=== PATIENT | female | born 1985 | race Caucasian/White ===

== ENCOUNTER 2016-05-25 20:36 | Emergency (ER) ==
--- NOTE | 2016-05-25 21:36 | PROVIDER DOCUMENTATION ---
HPI-Female /OB/Breast - General Source: reports: patient <Sol Hannah - Last Filed: 05/26/16 01:58> <Gregor Muir - Last Filed: 05/26/16 03:34> - General Chief Complaint: Abdominal Pain Stated Complaint: PREG?, CRAMPING NO SPOTTING Time Seen by Provider: 05/25/16 21:30 Allergies/Adverse Reactions: Patient Allergies Allergy/AdvReac Type Severity Reaction Status Date / Time diphenhydramine HCl * Allergy SWELLING Verified 05/25/16 20:52 [From Benadryl] Home Medications: Home Medication List Medication Instructions Recorded Confirmed Last Taken Type Nitrofurantoin [place]/Macrocryst 100 mg PO BID #20 capsule 05/26/16 Unknown Rx [Macrobid] Phenazopyridine HCl [Pyridium] 100 mg PO TID #6 tablet 05/26/16 Unknown Rx Pnv No.118/Iron Fumarate/FA 1 each PO DAILY #90 tab.chew 05/26/16 Unknown Rx [ 19 Chewable Tablet] - History of Present Illness-Female /OB Nature of Presenting Problem: 31 y/o WF c/o abd. cramping x 2-3 hours. Pt states that she just found out she was one week ago by home test. States pain in suprapubic region, not R or L. Denies any spotting. States vomiting x 2 today with nausea prior to cramping. States diarrhea x 1 yesterday. . No care. States also has pain in low back that started at same time. (Sol Hannah) Review of Systems - Adult - REVIEW OF SYSTEMS - ADULT Constitutional: reports: no symptoms reported. denies: chills, fever Eyes: reports: no symptoms reported. denies: blurred vision, double vision Ears, Nose, Mouth & Throat: reports: no symptoms reported. denies: ear pain, nose pain Cardiovascular: reports: no symptoms reported. denies: chest pain, palpitations Respiratory: reports: no symptoms reported. denies: cough, shortness of breath Gastrointestinal: reports: see HPI, abdominal pain (09/23), diarrhea, nausea, vomiting. denies: constipation Genitourinary: reports: no symptoms reported. denies: dysuria, frequency Musculoskeletal: reports: no symptoms reported. denies: joint pain, joint swelling Integumentary: reports: no symptoms reported. denies: nail changes, rash Neurological: reports: no symptoms reported. denies: numbness, paresthesia Psychiatric: reports: no symptoms reported Endocrine: reports: no symptoms reported. denies: cold intolerance, heat intolerance Hematologic/Lymphatic: reports: no symptoms reported. denies: easy bruising, prolonged bleeding Allergic/Immunologic: reports: no symptoms reported All Other Systems: Reviewed and Negative <Hoang Hannahine AmarilisJesica - Last Filed: 05/26/16 01:58> Past History - Adult - PAST MEDICAL HISTORY-ADULT Review of Records: reports: Nursing Assessment Review, Medications Reviewed LMP: 04/17/16 - PRIOR SURGERIES/PROCEDURES Surgical/Procedure History: reports: appendectomy, , orthopedic ( extremity) (R knee), other (D&C, L eye tropia corrective surgery) - SOCIAL HISTORY Smoking: cigarettes, less than 1 pack/day Provider spent 3-5 mins advising pt. on dangers of tobacco.: Discussed manners to quit use, and f/u contacts for add'l counseling. Substance Use: amphetamines (reports stopped using 3 days ago) Alcohol Use Frequency: occasionally Number of drinks per typical drinking period:: 2 drinks <Hoang Hannahine AmarilisJesica - Last Filed: 05/26/16 01:58> Physical Exam-General - PHYSICAL EXAM-ADULT Initial Vital Signs Reviewed: Yes - CONSTITUTIONAL General Appearance: alert, mild distress - EYES Eyes: pink conjunctivae - HEAD, EARS, NOSE, MOUTH & THROAT HENMT: normocephalic/atraumatic, moist mucous membranes - NECK Neck: normal inspection - RESPIRATORY Respiratory: lungs clear, normal breath sounds. negative: crackles, rales, rhonchi, stridor, wheezing - CARDIOVASCULAR Cardiovascular: regular rate, rhythm. negative: bradycardia, tachycardia - GASTROINTESTINAL (ABDOMEN) Abdominal Exam: normal bowel sounds, soft, tenderness (suprapubic). negative: distended, guarding, rigid, McBurney's point tenderness, Hatfield's sign - MUSCULOSKELETAL Back Exam: no CVA tenderness, other (TTP bilat low back) Extremity: normal gait - SKIN Integumentary: normal color, normal turgor, warm/dry - NEUROLOGIC Neurologic: negative: aphasia - PSYCHIATRIC Psych/Mental Status: normal mood/affect, normal thought content, normal thought process, oriented x 3 <Sol Hannah - Last Filed: 05/26/16 01:58> Progress - CHANGE OF SHIFT REPORT (ED Provider) Report Given and Care Transferred to:: Dr. Muir Time of Transfer: 02:00 Items Pending: Ultrasound Results Tentative Impression of Patient: UTI <Sol Hannah - Last Filed: 05/26/16 01:58> <Gregor Muir - Last Filed: 05/26/16 03:34> - PLAN OF CARE/RESULTS Progress/Plan/Lab Results: Discussed lab results with Dr. Muir and further POC; he states pt needs US to confirm not ectopic. (Sol Hannah) Departure - Departure Certified Medical Emergency: Emergent <Sol Hannah - Last Filed: 05/26/16 01:58> - Departure Time of Disposition Order: 03:34 Certified Medical Emergency: Emergent <Gregor Muir - Last Filed: 05/26/16 03:34> - Departure DIAGNOSIS: Abdominal cramping UTI (urinary tract infection) Qualifiers: Urinary tract infection type: acute cystitis Hematuria presence: with hematuria Qualified Code(s): N30.01 - Acute cystitis with hematuria Normal IUP (intrauterine ) on ultrasound Qualifiers: Trimester: first trimester Qualified Code(s): Z34.91 - Encounter for supervision of normal , unspecified, first trimester Disposition: HOME 01 Condition: Stable Additional Instructions: Take medications as directed. Follow up with OB for further management. Drink plenty of fluids. ED Follow Up Instructions: You have been treated by a care provider in the Emergency Department. These instructions are being provided to you so you can have an understanding of how to care for yourself upon discharge. Upon discharge from the Emergency Department, you are responsible for making arrangements for follow-up care by a physician of your choice. Take all prescribed medications as directed. Return to the Emergency Department immediately for any new or worsening symptoms. You may call the Physician Referral phone number at [phone] to obtain a list of Physicians who are taking new patients. Prescriptions: Nitrofurantoin [place]/Macrocryst [Macrobid] 100 mg PO BID #20 capsule Pnv No.118/Iron Fumarate/FA [ 19 Chewable Tablet] 1 each PO DAILY #90 tab.chew Phenazopyridine HCl [Pyridium] 100 mg PO TID #6 tablet Referrals: None,PCP [Primary Care Provider] - Jeromy Lezama MD [STAFF PHYSICIAN] - Attestation - Physician/ [id number] Attestation Patient care was provided by Advanced Practice Provider:: Yes Advanced Practice Provider:: Sol Hannah Advanced Practice Provider documentation review:: The Mid-level provider documentation, treatment plan and medical decision making was reviewed by the physician who agrees with all treatment and medical decision making by the MLP. <Sol Hannah - Last Filed: 05/26/16 01:58> Physician Attestation
[2016-05-25 22:37] LABS: MANUAL DIFF NEEDED? NO
[2016-05-25 22:42] LABS: BASO% 0.4 % (0.0-0.8); EOS# 0.15 X1000 (0.0-0.7); EOS% 1.8 % (0.0-10.0); HEMATOCRIT 38.2 % (37.0-47.0); HEMOGLOBIN 13.9 g/dL (12.0-16.0); LYMPH# 2.06 X1000 (1.2-3.4); LYMPH% 24.4 % (20.5-51.1); MCH 32.9 PG (27-31); MCHC 36.4 g/dL (33-37); MCV 90.5 FL (81-99); MONO# 0.68 X1000 (0.11-0.59); MONO% 8.1 % (1.7-9.3); MPV 9.5 FL (7.4-10.4); NEUT% 65.3 % (42.2-75.2); PLT 462 X1000 (130-400); RBC 4.22 XMIL (4.2-5.4)
[2016-05-25 23:06] LABS: AGAP 16; ALBUMIN 4.4 g/dL (3.5-5.0); ALKALINE PHOSPHATASE 79 U/L (32-104); AMYLASE 34 U/L (20-200); BUN 5 mg/dL (8-22); CALCIUM 9.8 mg/dL (8.8-10.2); CHLORIDE 98 mmol/L (98-107); COSMO 274; GOT 44 U/L (10-30); GPT 72 U/L (10-36); LIPASE 13 U/L (13-60); POTASSIUM 3.9 mmol/L (3.5-5.1); SODIUM 139 mmol/L (136-145); TCO2 25 mmol/L (25-35); TOTAL BILIRUBIN 0.48 mg/dL (0.20-1.00); TOTAL PROTEIN 7.3 g/dL (6.3-8.3)
[2016-05-25 23:28] LABS: URINE SOURCE CLEAN CATCH
[2016-05-25 23:31] LABS: URINE MICRO REVIEW NEEDED? YES
[2016-05-25 23:32] LABS: BILIRUBIN URINE SMALL (NEGATIVE); BLOOD URINE SMALL (NEGATIVE); COLOR YELLOW; GLUCOSE URINE NEGATIVE (NEGATIVE); LEUKOCYTES URINE LARGE (NEGATIVE); NITRITE URINE NEGATIVE (NEGATIVE); PROTEIN URINE 50 mg/dL (NEGATIVE); SP GRAVITY URINE 1.026; TURBIDITY URINE HAZY (CLEAR); UROBILINOGEN URINE 3 mg/dL (NORMAL)
[2016-05-25 23:34] LABS: UR EPITHELIAL CELLS <10 /HPF (<10); URINE RBC <10 /HPF (<10); URINE WBC TNTC /HPF (<10)
[2016-05-25 23:38] LABS: URINE CULTURE NEEDED? YES
[2016-05-25 23:41] LABS: URINE CASTS NONE SEEN; URINE CRYSTALS NONE SEEN; URINE SMALL ROUND CELLS NONE SEEN
[2016-05-25 23:43] LABS: URINE BACTERIA 4+ /HPF
[2016-05-26] MEDS ORDERED: XYLOCAINE-MPF 1% INJ ONE (00:07)
[2016-05-26] MEDS ORDERED: ROCEPHIN IM ONE (00:07)
[2016-05-26 03:55] VITALS: BP 101/65
--- NOTE | 2016-05-26 08:34 | Diag Imaging Result Document ---
PROCEDURE NAME: US OBS COMPLETE < 14 WKS - 05/26/2016 TRANSVAGINAL PELVIC ULTRASOUND: FINDINGS: There is an intrauterine gestational sac with an estimated gestational age based on measurements of 5 weeks 0 days. No pole at this time. The uterus is otherwise normal. Normal left ovary. The right ovary is not identified. No adnexal mass. There is a small amount of free fluid. IMPRESSION: Early gestational sac. No pole which may be normal at this gestational age. Short-term followup with beta hCG recommended. A preliminary report was given at 3:29 a.m. MTDD
== END 2016-05-26 03:54 | disposition home or self-care (01) ==
LOC: ED 20:36
DX: O23.11 Infections of bladder in pregnancy, first trimester (principal); N30.01 Acute cystitis with hematuria; O26.891 Other specified pregnancy related conditions, first trimester; R10.30 Lower abdominal pain, unspecified; R19.7 Diarrhea, unspecified; O21.0 Mild hyperemesis gravidarum; O99.331 Smoking (tobacco) complicating pregnancy, first trimester; F17.210 Nicotine dependence, cigarettes, uncomplicated; Z71.6 Tobacco abuse counseling; Z3A.01 Less than 8 weeks gestation of pregnancy
CPT/HCPCS: 76801; 80053; 81001; 82150; 83690; 84702; 85025; 87077; 87088; 87186; 96372; J0696

== ENCOUNTER 2018-12-17 08:50 | Inpatient (IN) ==
[2018-12-18 11:18] VITALS: BP 117/84
[2018-12-18 11:57] LABS: BILIRUBIN URINE NEGATIVE (NEGATIVE); BLOOD URINE TRACE (NEGATIVE); CLARITY VERY CLOUDY (CLEAR); COLOR YELLOW; GLUCOSE URINE NEGATIVE (NEGATIVE); KETONE URINE NEGATIVE (NEGATIVE); LEUKOCYTES URINE NEGATIVE (NEGATIVE); NITRITE URINE POSITIVE (NEGATIVE); PROTEIN URINE NEGATIVE (NEGATIVE); UROBILINOGEN URINE NORMAL
[2018-12-18 12:02] LABS: URINE BACTERIA 4+ /HFP; URINE EPITHELIAL CELLS <10 /HPF (<10); URINE RBC <10 /HPF (<10); URINE SOURCE CLEAN CATCH; URINE WBC <10 /HPF (<10)
[2018-12-18 12:05] LABS: UR AMPHETAMINES QUAL PRESUMPTIVE POSITIVE (NONE DETECT); UR BARBITUATES QUAL NONE DETECTED (NONE DETECT); UR BENZODIAZEPIN QUAL NONE DETECTED (NONE DETECT); UR CANNABINOIDS QUAL NONE DETECTED (NONE DETECT); UR COCAINE QUAL NONE DETECTED (NONE DETECT); UR METHADONE QUAL NONE DETECTED (NONE DETECT); UR METHAMPHETAMINE QUAL NONE DETECTED (NONE DETECT); UR OPIATES QUAL NONE DETECTED (NONE DETECT); UR OXYCODONE QUAL NONE DETECTED (NONE DETECT); UR PCP QUAL NONE DETECTED (NONE DETECT); UR PROPOXYPHENE QUAL NONE DETECTED (NONE DETECT); UR TCA QUAL NONE DETECTED (NONE DETECT)
[2018-12-18] MEDS ORDERED: ZOFRAN ODT PO PRN (14:33)
[2018-12-18] MEDS ORDERED: ROBAXIN PO PRN (14:33)
[2018-12-18] MEDS ORDERED: BENTYL PO PRN (14:33)
[2018-12-18] MEDS ORDERED: NICODERM PATCH TD PRN (14:33)
[2018-12-18] MEDS ORDERED: ZOFRAN IV PRN (14:33)
[2018-12-18] MEDS ORDERED: TYLENOL PO PRN (14:33)
[2018-12-18] MEDS ORDERED: ATARAX PO PRN (14:33)
[2018-12-18] MEDS ORDERED: DULCOLAX PR PRN (14:33)
[2018-12-18] MEDS ORDERED: LIBRIUM PO PRN (14:33)
[2018-12-18] MEDS ORDERED: DESYREL PO PRN (14:33)
[2018-12-18] MEDS ORDERED: PHENOBARBITAL IV PRN (14:33)
[2018-12-18] MEDS ORDERED: MAALOX PLUS LIQUID PO PRN (14:33)
[2018-12-18] MEDS ORDERED: SEROQUEL PO PRN (14:33)
[2018-12-18] MEDS ORDERED: MOTRIN PO PRN (14:33)
[2018-12-18] MEDS ORDERED: SINEMET 25/100 PO PRN (14:33)
[2018-12-18] MEDS ORDERED: IMODIUM PO PRN (14:33)
[2018-12-18] MEDS ORDERED: SENOKOT PO PRN (14:33)
[2018-12-18] MEDS ORDERED: D5W 1,000 ML IV PRN (14:33)
[2018-12-18 14:58] LABS: HEMATOCRIT 38.7 % (37.0-47.0); HEMOGLOBIN 13.2 g/dL (12.0-16.0); MCH 32.2 PG (27-31); MCHC 34.1 g/dL (33-37); MCV 94.4 FL (81-99); MPV 9.1 FL (7.4-10.4); RBC 4.1 XMIL (4.2-5.4); RDW 12.4 % (11.5-14.5); WBC 7.08 X1000 (4.8-10.8)
[2018-12-18] MEDS ORDERED: TUBERSOL ID ONE (15:00)
[2018-12-18 15:14] LABS: AMYLASE 57 U/L (20-200); LIPASE 17 U/L (13-60)
[2018-12-18 15:16] LABS: AGAP 12; ALBUMIN 4.6 g/dL (3.5-5.0); ALKALINE PHOSPHATASE 91 U/L (32-104); BUN 10 mg/dL (8-22); CALCIUM 9.7 mg/dL (8.8-10.2); CHLORIDE 102 mmol/L (98-107); COSMO 280; CREATININE 0.5 mg/dL (0.5-0.9); ESTIMATED GFR > 60; GLUCOSE 91 mg/dL (70-104); GOT 21 U/L (10-30); GPT 18 U/L (10-36); POTASSIUM 4.5 mmol/L (3.5-5.1); SODIUM 141 mmol/L (136-145); TCO2 27 mmol/L (25-35); TOTAL PROTEIN 7.5 g/dL (6.3-8.3)
[2018-12-18 15:22] LABS: INR 0.93; PROTIME 12.9 Seconds (11.0-16.0)
[2018-12-18] MEDS ORDERED: SUBOXONE 2 MG/0.5 MG FILM SL SCH (18:00)
--- NOTE | 2018-12-18 18:53 | HISTORY AND PHYSICAL ---
CHIEF COMPLAINT: Nausea and vomiting. HISTORY OF PRESENT ILLNESS: The patient is a 33-year-old female who presented [facility] secondary to nausea, vomiting, abdominal pain, myalgias, paresthesias. She has been abusing opiates and sometimes other substances. States she wants to get her life back under control. She had been on Suboxone in the past, but currently is not going to a provider as her previous provider closed. SOCIAL HISTORY: Patient is . She is unemployed. Lives at home in [place]. Notes that substance abuse has caused legal issues, (She is currently on probation.), health issues, financial issues. PAST MEDICAL HISTORY: 1. Hepatitis C 2 years ago. 2. Hypothyroidism. 3. Chronic anxiety. 4. Depression. 5. Recurrent kidney infections. 6. Anemia since childhood. MEDICATIONS: 1. Synthroid 75. 2. Adderall 30. ALLERGIES: Benadryl topical cream. REVIEW OF SYSTEMS: CINA score is 15, secondary to nausea, vomiting, abdominal pain, myalgias, cramping, frequent hot and cold temperature changes, frequent chills, frequent changes in skin sensitivity. Denies any hallucinations. Denies suicidal or homicidal ideations. Denies any fevers, headaches, blurred vision, change in her vision. Denies any focalized weakness in her extremities. Denies dysuria, frequency, urgency, constipation, melena, hematochezia. SUBSTANCE ABUSE HISTORY: The patient was in [place] [facility] for 28 days in 2005 and immediately relapsed. Again was in [place] [facility] in 2008 and relapsed immediately. In 2014, she was sober in [facility] and then went to [facility] for a year and a half. Afterward, she started on Suboxone until the clinic closed. Since then, she has been buying opiates and Suboxone off the street. Started drinking as early as age 13; currently drinks 1 to 2 beers a day, sometimes more. Started marijuana at 12; has not used since she was 13. Started Xanax at 24; did not like them, and has not used in 6 months. Started methamphetamine and Adderall at 15; currently uses daily via smoking, snorting, or swallowing it. Started opiates at 13; currently takes as much as she can get her hands own. Started smoking as early as age 12; currently smokes a half pack a day. FAMILY HISTORY: Noncontributory. PHYSICAL EXAMINATION: VITAL SIGNS: Reviewed. GENERAL: She is awake and alert. She is in no respiratory distress. HEENT: Normocephalic. NECK: Supple. CARDIOVASCULAR: Regular rate. No murmurs. CHEST: Clear, nonlabored. ABDOMEN: Soft. EXTREMITIES: Moves all extremities. NEUROLOGIC: No changes. ASSESSMENT: 1. Nausea and vomiting. 2. Abdominal pain. 3. Myalgias. 4. Paresthesias. 5. Paroxysmal sweating. 6. Polysubstance use and abuse. 7. Opiate abuse, withdrawal and stabilization. 8. Chronic tobacco abuse. PLAN: We will admit patient to the hospital and place her on Suboxone. We will begin counseling. Further orders as needed. cc: Sanchez Asencio MD
[2018-12-19] MEDS ORDERED: PROTONIX PO SCH (07:00)
[2018-12-19] MEDS ORDERED: FOLIC ACID PO SCH (09:00)
[2018-12-19] MEDS ORDERED: THERA M PLUS PO SCH (09:00)
[2018-12-19] MEDS ORDERED: VITAMIN B-1 PO SCH (09:00)
== END 2018-12-18 15:20 | disposition left against medical advice (07) | DRG 894 ==
LOC: P.DIRADM 12-18 10:38 → P.MEDSURG 12-18 10:49
PROVIDERS: ADMIT Family Medicine; ATTEND Family Medicine